=== PATIENT | female | born 1965 | race Caucasian/White ===

== ENCOUNTER → 2017-12-27 09:04 | Outpatient (CLI) | payer OTHER, SELFPAY ==
--- NOTE | 2017-12-27 09:06 | MM_ITS ---
MM Dig screening mamm BI w/CAD . ORDERING PHYSICIAN : Kalin Morocho MD PATIENT AGE: 52 years GENDER: Female INDICATION: Routine screening. No hormones. No new complaints. Noncontributory family history COMPARISON: Right mammogram from October 2015. Bilateral mammogram September 2015, August 2014, July 2013. July 2011 TECHNIQUE: Standard CC and MLO images were obtained. R2 CAD reviewed. FINDINGS:...... Moderate breast density. Mild asymmetry. RIGHT BREAST:No significant new findings. The residual fibrolinear elements towards upper-outer quadrant right breast appears stable small grouping of 3. Dense calcifications in the deep central right breast unchanged. LEFT BREAST:No significant new findings Stable ovoid low-density area medial left breast on cc view there is been present since at least 2010. If anything it seems to have decreased in size and lower density it measures just over 16 mm length maximally on today's study given its long-standing stability can be followed IMPRESSION: ...... No significant new findings in either breast. Bilateral follow-up in one year recommended BI-RADS Category: 2 Benign Finding(s) RECOMMENDED FOLLOW-UP: 1YR - 1 YEAR FOLLOW-UP (A letter has been sent to the patient regarding results of the study.)
== END ==
PROVIDERS: Family Provider Family Medicine; PCP Family Medicine; Visit Provider Nurse Practitioner Obstetrics & Gynecology
DX: Z12.31 Encounter for screening mammogram for malignant neoplasm of breast (principal)
CPT/HCPCS: 77067

== ENCOUNTER 2019-02-05 11:17 | Emergency (ER) | payer OTHER, SELFPAY ==
[2019-02-05 11:29] VITALS: BP 119/85; PULSE 81; RESP 18; TEMP 36.8; O2SAT 98; BMI 28.3
--- NOTE | 2019-02-05 12:10 | HMH.EDUTC ---
[facility] [place] Clinical Impression: Nausea Diarrhea Qualifiers: Diarrhea type: unspecified type Qualified Code(s): R19.7 - Diarrhea, unspecified Disposition: Home, Self-Care Condition on Discharge: Good Instructions: Diarrhea (Alternative Therapy), Diarrhea (Alternative Therapy), Diarrhea, DI for Nausea -- Adult Additional Instructions: ? Drink extra fluids with and between meals. If you have difficulty drinking, try very small amounts of water or suck on ice chips. ? Avoid fruit juices, as these do not replace minerals and can actually increase diarrhea. ? Children and adults can use sports drinks to replenish electrolytes. Younger children and infants should use products formulated for children, like oral rehydration solutions. ? Eat food in small amounts and let your stomach recover. ? Get lots of rest. You may feel tired or weak. ? No greasy or fried foods for the next 24-48 hours BRAT diet Bananas Rice Apples and Alice ? Make sure to drink plenty of liquids ? Return if needed ? Straight to ER if any life threatening symptoms ? Zofran as prescribed You was given outpatient order for diarrhea panel, collect specimen and take to out patient lab with order and then follow up with family doctor or call back to the [facility] for further treatment and results Make sure that you are drinking plenty of fluids Prescriptions: Ondansetron [Zofran 4mg ODT] 4 mg PO Q8HP PRN #6 tab.rapdis PRN Reason: Nausea Referrals: Tiff Torres MD [Primary Care Provider] - As needed Forms: Work/School Release Time of Disposition: 12:16 Medical Decision Making - Julio Inquiry Pt receiving controlled substance: No Julio was queried for this patient: No Vital Signs: 02/05/19 11:29 Temperature 98.2 F Temperature Source Oral Pulse Rate [Right Radial] 81 Respiratory Rate 18 Blood Pressure [Right Arm] 119/85 Blood Pressure Mean [Right Arm] 96 Blood Pressure Source [Right Arm] Automatic Cuff Blood Pressure Position [Right Arm] Sitting 02 Sat by Pulse Oximetry 98 Oxygen Delivery Method Room Air - Reevaluation(s) Time: 12:21 Reevaluation #1: Specimen collected and sent to lab [facility] [place] - General Stated complaint: Possible stomach bug Time Seen by Provider: 02/05/19 12:10 Mode of Arrival: Ambulatory Source of Information: Patient Limitations: No Limitations Description of Symptoms (Recalled from Triage Doc. by RN): C/O N/V/D SINCE SUNDAY NIGHT HEENT Symptoms (Recalled from RN notes): No Resp Symptoms (Recalled from RN notes): No Skin Symptoms (Recalled from RN notes): No MS Symptoms (Recalled from RN notes): No Functional Status (Recalled from RN notes): N/A - History of Present Illness Provider Complaint: Patient states that she has been having nausea and diarrhea since Sunday after eating at a resturant State that she is not sure if it was something she eat or has a stomach bug State that it started out being watery but now is starting to have some consistancy State that thinks she may have had a stomach bug - Related Data Previous Rx's Medication Instructions Recorded escitalopram 10 mg tablet 10 mg PO DAILY #30 tab 11/05/17 levothyroxine 75 mcg tablet 75 mcg PO ONCE #30 tab 11/05/17 nitrofurantoin 100 mg PO BID 5 Days #10 cap 09/06/18 monohydrate/macrocrystals 100 mg capsule azithromycin 250 mg tablet See Rx Instructions PO .COMPLEX #6 10/18/18 tab valacyclovir 500 mg tablet 500 mg PO BID #60 tab 11/21/18 Ondansetron [Zofran 4mg ODT] 4 mg PO Q8HP PRN #6 tab.rapdis 02/05/19 Allergies Allergy/AdvReac Type Severity Reaction Status Date / Time PCN (PENICILLIN) Allergy Unknown I-RASH Uncoded 12/25/17 08:14 SULFA (SULFONAMIDE) Allergy Unknown I-HIVES Uncoded 12/25/17 08:14 - Worker's Comp Is this a Worker's Comp case?: No [facility] History - Hepatitis A Screen Drug use history?: No High risk sexual behaviors?: No History of sexually transmitted infection?: No Currently employed?: No
--- NOTE | 2019-02-05 12:13 | ED_ITS ---
[facility] [place] Clinical Impression: Nausea Diarrhea Qualifiers: Diarrhea type: unspecified type Qualified Code(s): R19.7 - Diarrhea, unspecified Disposition: Home, Self-Care Condition on Discharge: Good Instructions: Diarrhea (Alternative Therapy), Diarrhea (Alternative Therapy), Diarrhea, DI for Nausea -- Adult Additional Instructions: ? Drink extra fluids with and between meals. If you have difficulty drinking, try very small amounts of water or suck on ice chips. ? Avoid fruit juices, as these do not replace minerals and can actually increase diarrhea. ? Children and adults can use sports drinks to replenish electrolytes. Younger children and infants should use products formulated for children, like oral rehydration solutions. ? Eat food in small amounts and let your stomach recover. ? Get lots of rest. You may feel tired or weak. ? No greasy or fried foods for the next 24-48 hours BRAT diet Bananas Rice Apples and Kinde ? Make sure to drink plenty of liquids ? Return if needed ? Straight to ER if any life threatening symptoms ? Zofran as prescribed You was given outpatient order for diarrhea panel, collect specimen and take to out patient lab with order and then follow up with family doctor or call back to the [facility] for further treatment and results Make sure that you are drinking plenty of fluids Prescriptions: Ondansetron [Zofran 4mg ODT] 4 mg PO Q8HP PRN #6 tab.rapdis PRN Reason: Nausea Referrals: Tiff Torres MD [Primary Care Provider] - As needed Forms: Work/School Release Time of Disposition: 12:16 Medical Decision Making - Julio Inquiry Pt receiving controlled substance: No Julio was queried for this patient: No Vital Signs: 02/05/19 11:29 Temperature 98.2 F Temperature Source Oral Pulse Rate [Right Radial] 81 Respiratory Rate 18 Blood Pressure [Right Arm] 119/85 Blood Pressure Mean [Right Arm] 96 Blood Pressure Source [Right Arm] Automatic Cuff Blood Pressure Position [Right Arm] Sitting 02 Sat by Pulse Oximetry 98 Oxygen Delivery Method Room Air - Reevaluation(s) Time: 12:21 Reevaluation #1: Specimen collected and sent to lab [facility] [place] HPI - General Stated complaint: Possible stomach bug Time Seen by Provider: 02/05/19 12:10 Mode of Arrival: Ambulatory Source of Information: Patient Limitations: No Limitations Description of Symptoms (Recalled from Triage Doc. by RN): C/O N/V/D SINCE SUNDAY NIGHT HEENT Symptoms (Recalled from RN notes): No Resp Symptoms (Recalled from RN notes): No Skin Symptoms (Recalled from RN notes): No MS Symptoms (Recalled from RN notes): No Functional Status (Recalled from RN notes): N/A - History of Present Illness Provider Complaint: Patient states that she has been having nausea and diarrhea since Sunday after eating at a resturant State that she is not sure if it was something she eat or has a stomach bug State that it started out being watery but now is starting to have some consistancy State that thinks she may have had a stomach bug - Related Data Previous Rx's Medication Instructions Recorded escitalopram 10 mg tablet 10 mg PO DAILY #30 tab 11/05/17 levothyroxine 75 mcg tablet 75 mcg PO ONCE #30 tab 11/05/17 nitrofurantoin 100 mg PO BID 5 Days #10 cap 09/06/18 monohydrate/macrocrystals 100 mg capsule rom
[2019-02-05 12:26] VITALS: BP 133/87; PULSE 76; RESP 18; TEMP 36.6; O2SAT 100
== END 2019-02-05 12:26 | disposition home or self-care (01) ==
PROVIDERS: Emergency Provider Nurse Practitioner; PCP Family Medicine
DX: R11.2 Nausea with vomiting, unspecified (principal); R19.7 Diarrhea, unspecified; F41.8 Other specified anxiety disorders; E78.5 Hyperlipidemia, unspecified; I10 Essential (primary) hypertension; E03.9 Hypothyroidism, unspecified; Z88.0 Allergy status to penicillin; Z88.2 Allergy status to sulfonamides
CPT/HCPCS: 99201

== ENCOUNTER → 2019-06-11 10:57 | Outpatient (CLI) | payer OTHER, SELFPAY ==
--- NOTE | 2019-06-11 11:02 | MM_ITS ---
PROCEDURE: MM DIG SCREENING MAMM BI W/CAD Patient Age:54Y CLINICAL INDICATION: Routine Screening Mammogram but no hormones but no new complaints. 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 R2 CAD reviewed. Additional axillary CC view bilateral FINDINGS: Right breast no new areas of significant concern. Stable benign dense cluster of calcifications deep superior breast unchanged. The minimal asymmetry of breast tissue of 0 pattern is stable. Left breast: No new areas of significant concern. Stable asymmetric low-density focus density at the medial breast has been present with no significant change since studies dating back to 2013, 2012. In fact image the slightly less density today than on those prior studies but this can be followed with reasonable safety but IMPRESSION: No significant new findings. Stable bilateral mammogram. Stable asymmetric focus of density medial left breast . Follow-up 1 year recommended BI-RAD Category: 2 Benign Finding(s) FOLLOW-UP: 1YR 1 Year Follow-up (A letter has been sent to the patient regarding results of the study.) Dictated by: Suhial Samaniego MD 06/14/2019 09:08 Electronically signed by Suhail Samaniego MD in [place] 06/14/2019 09:08
== END ==
PROVIDERS: PCP Family Medicine; Visit Provider Nurse Practitioner Obstetrics & Gynecology
DX: Z12.31 Encounter for screening mammogram for malignant neoplasm of breast (principal)
CPT/HCPCS: 77067

== ENCOUNTER → 2023-02-13 12:46 | Outpatient (CLI) | payer OTHER, SELFPAY ==
--- NOTE | 2023-02-13 12:47 | MM_ITS ---
PROCEDURE INFORMATION: Exam: MG Bilateral Screening 3D Mammography Exam date and time: 02/13/2023 12:58 PM Age: 58 years old Clinical indication: Screening. No family history of breast cancer. TECHNIQUE: Imaging protocol: Bilateral Screening tomosynthesis and 2D mammography including computer-aided detection (CAD) when performed. COMPARISON: 1. MG MM DIG SCREENING MAMM BI W/CAD 06/11/2019 11:11 AM 2. MG [facility] MM Dig screening mamm BI w/CAD 12/27/2017 9:12 AM 3. MG DMDXUAVR DIG MAMM-DX UNI ADD VIEWS-RT 11/09/2015 3:59 PM 4. 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 Mass: No suspicious mass. Architectural distortion: None. Calcifications: No suspicious calcifications. Asymmetric density: None. Skin thickening: None. Axillary adenopathy: None. IMPRESSION: No mammographic evidence of malignancy. Annual screening is recommended unless otherwise clinically indicated. ASSESSMENT: BI-RADS Category 1: Negative
== END ==
PROVIDERS: PCP Family Medicine; Visit Provider Nurse Practitioner Obstetrics & Gynecology
DX: Z12.31 Encounter for screening mammogram for malignant neoplasm of breast (principal)
CPT/HCPCS: 77063; 77067

== ENCOUNTER 2024-09-17 10:33 | Outpatient (CLI) | payer OTHER, SELFPAY ==
[2024-09-17 11:14] LABS: Alanine Aminotransferase 52 U/L (12-78); Albumin Level 4.5 g/dl (3.5-5.0); Albumin/Globulin Ratio 1.9 (1.1-1.8); Alkaline Phosphatase 80 U/L (38-126); Anion Gap 13.4 mEq/L (5-15); Aspartate Amino Transferase 50 U/L (14-36); Blood Urea Nitrogen 12 mg/dl (7-17); Calcium 9.7 mg/dl (8.4-10.2); Carbon Dioxide 29 mmol/L (22.0-30.0); Chloride 104 mmol/L (98-107); Chol/HDL Ratio 4.9 (1-3.5); Cholesterol 200 mg/dl (140-200); Estimated Glomerular Filt Rate 73 ml/min (>60); GFR (African American) 88 ML/MIN (>60); Globulin 2.4 g/dL (1.3-3.2); Glucose 109 mg/dl (74-100); HDL Cholesterol 41 mg/dl (40-60); Potassium 4.4 mmoL/L (3.5-5.1); Sodium 142 mmol/L (136-145); Total Protein,Serum 6.9 g/dl (6.3-8.2); Triglycerides 137 mg/dl (30-150); VLDL Cholesterol 27 mg/dL (0-40)
[2024-09-17 11:25] LABS: Direct LDL Cholesterol 125.22 mg/dL (100-129)
[2024-09-17 11:27] LABS: Basophils # 0.1 K/mm3 (0-0.2); Basophils % 0.9 % (0.1-2.0); Eosinophils # 0.1 K/mm3 (0.0-0.4); Eosinophils % 1.7 % (0.1-12.0); Hematocrit 43.1 % (37.0-47.0); Hemoglobin 14.2 g/dL (12.2-16.2); Lymphocytes # 2.3 K/mm3 (0.7-4.5); Lymphocytes % 33.9 % (10-50); Mean Corpuscular HGB Conc 32.9 g/dL (31.8-35.4); Mean Corpuscular Hemoglobin 28.3 pg (27.0-31.2); Mean Corpuscular Volume 85.9 fl (81-99); Mean Platelet Volume 11.5 fl (7.4-10.4); Monocytes # 0.5 K/mm3 (0.1-1.0); Monocytes % 7.1 % (1.7-9.3); Neutrophils # 3.7 K/mm3 (1.8-7.8); Neutrophils % 56.1 % (37.0-80.0); Platelet Count 244 K/mm3 (142-424); Red Blood Count 5.02 M/mm3 (4.20-5.40); Red Cell Distribution Width 13.2 % (11.5-17.5); White Blood Count 6.7 K/mm3 (4.8-10.8)
[2024-09-17 11:30] LABS: Triiodothryronine (T3) Uptake 30 % (23.5-40.5)
[2024-09-17 15:29] LABS: Free Thyroxine Index 2.3 ug/dL (5.93-13.13); T4 (Thyroxine) 7.5 ug/dl (5.53-11.0)
[2024-09-17 15:43] LABS: Thyroid Stimulating Hormone 5.86 uIU/mL (0.465-4.68)
== END 2024-09-17 23:59 | disposition home or self-care (01) ==
LOC: LAB 10:39
PROVIDERS: PCP Family Medicine; Visit Provider Nurse Practitioner Obstetrics & Gynecology
DX: Z01.419 Encounter for gynecological examination (general) (routine) without abnormal findings (principal)
CPT/HCPCS: 36415; 80053; 80061; 84436; 84443; 84479; 85025

== ENCOUNTER 2024-09-22 15:40 | Outpatient (CLI) | payer OTHER, SELFPAY ==
--- NOTE | 2024-09-22 15:41 | MM_ITS ---
PROCEDURE INFORMATION: Exam: MG Bilateral Screening 3D Mammography Exam date and time: 09/22/2024 3:43 PM Age: 59 years old Clinical indication: Screening. No family history of breast cancer. TECHNIQUE: Imaging protocol: Bilateral Screening tomosynthesis and 2D mammography including computer-aided detection (CAD) when performed. COMPARISON: 1. MG MM DIG SCREENING MAMM BI W/CAD 02/13/2023 12:58 PM 2. MG MM DIG SCREENING MAMM BI W/CAD 06/11/2019 11:11 AM 3. MG [facility] MM Dig screening mamm BI w/CAD 12/27/2017 9:12 AM 4. MG DMDXUAVR DIG MAMM-DX UNI ADD VIEWS-RT 11/09/2015 3:59 PM FINDINGS: MAMMOGRAPHY: Breast composition: There are scattered areas of fibroglandular density. Mass: No suspicious mass. Architectural distortion: None. Calcifications: No suspicious calcifications. Asymmetric density: None. Skin thickening: None. Axillary adenopathy: None. IMPRESSION: No mammographic evidence of malignancy. Annual screening is recommended unless otherwise clinically indicated. ASSESSMENT: BI-RADS Category 1: Negative.
== END 2024-09-22 23:59 | disposition home or self-care (01) ==
LOC: RAD 15:41
PROVIDERS: PCP Family Medicine; Visit Provider Nurse Practitioner Obstetrics & Gynecology
DX: Z12.31 Encounter for screening mammogram for malignant neoplasm of breast (principal)
CPT/HCPCS: 77063; 77067